=== PATIENT | female | born 1945 | race Caucasian/White ===

== ENCOUNTER 2019-03-04 12:50 | Emergency (ER) | payer MEDICARE, OTHER ==
[~2019-03-04] VITALS: Ht 170.2 cm; Wt 72.3 kg
[2019-03-04 13:13] VITALS: Ht 170.2 cm; Wt 72.3 kg
[2019-03-04] MEDS ORDERED: OS-CAL500 MG PO (13:17)
[2019-03-04] MEDS ORDERED: PROTONIX40 MG PO (13:17)
[2019-03-04] MEDS ORDERED: LIPITOR20 MG PO (13:17)
[2019-03-04] MEDS ORDERED: FISH OIL 1,0001 CA1 PO (13:17)
[2019-03-04] MEDS ORDERED: TIROSINT25 MCG PO (13:17)
[2019-03-04] MEDS ORDERED: MAGNESIUM OXID500 MG PO (13:18)
[2019-03-04] MEDS ORDERED: VITAMIN D31000 UNI2 PO (13:18)
[2019-03-04] MEDS ORDERED: VITAMIN B-121000 MCG PO (13:19)
[2019-03-04] MEDS ORDERED: PRESER VISION (13:19)
[2019-03-04 13:48] LABS: BASOPHILS 0.6 % (0-2); EOSINOPHILS 2.3 % (0-7); HEMATOCRIT 42.1 % (36.0-48.0); HEMOGLOBIN 13.9 g/dL (12-16); IMMATURE GRANULOCYTES 0.2 % (0-5); MCH 31.1 pg (26.0-34.0); MCV 94.2 fL (80.0-100.0); MEAN PLATELET VOLUME 9.9 fL (7.4-10.4); NEUTROPHILS 57.9 % (40-80); PLATELET COUNT 168 10x3/uL (130-400); RBC 4.47 10x6/uL (4.00-5.40); RDW 13.4 % (11.5-14.5); WBC 5.3 10x3/uL (4.8-10.8)
[2019-03-04 13:56] LABS: APTT 27.7 SECONDS (22.8-39.4); INR 0.92 (0.85-1.17); PROTIME 11.9 SECONDS (11.6-15.0)
[2019-03-04 14:01] LABS: ALBUMIN 3.5 g/dL (3.4-5.0); ALKALINE PHOSPHATASE 58 U/L (46-116); ALT (SGPT) 20 U/L (10-68); BILIRUBIN - TOTAL 0.25 mg/dL (0.2-1.3); CALC OSMOLALITY 291 mosm/kg (275-300); CALCIUM 9.8 mg/dL (8.5-10.1); CARBON DIOXIDE 30.1 mmol/L (21.0-32.0); CHLORIDE - SERUM 107 mmol/L (98-107); CREATININE - SERUM 1.2 mg/dL (0.6-1.3); GLUCOSE 101 mg/dL (74-106); POTASSIUM - SERUM 4.2 mmol/L (3.5-5.1); PROTEIN - SERUM 6.9 g/dL (6.4-8.2); SODIUM 145 mmol/L (136-145); UREA NITROGEN 20 mg/dL (7-18); eGFR NON AFRICAN AMERICAN 46 mL/min (90-120)
[2019-03-04 14:12] LABS: CKMB 1.7 U/L (0.0-3.6); CREATINE KINASE 131 UL (21-215); MAGNESIUM - SERUM 2.1 mg/dL (1.8-2.4); TROPONIN-I < 0.017 ng/mL (0.000-0.060)
[2019-03-04 17:07] LABS: CKMB 1.8 U/L (0.0-3.6); CREATINE KINASE 117 UL (21-215); TROPONIN-I < 0.017 ng/mL (0.000-0.060)
[2019-03-04 18:24] VITALS: BP 124/60
== END 2019-03-04 18:25 | disposition home or self-care (01) ==
LOC: D.ER 12:50
PROVIDERS: Family Medicine
DX: R06.09 Other forms of dyspnea (principal); R00.0 Tachycardia, unspecified; I25.10 Atherosclerotic heart disease of native coronary artery without angina pectoris

== ENCOUNTER → 2019-03-17 08:43 | Outpatient (CLI) | payer MEDICARE, OTHER ==
[2019-03-04 13:13] VITALS: BMI 24.9
[~2019-03-17 08:43] MED LIST: FISH OIL 1,0001 CA1 PO; LIPITOR20 MG PO; MAGNESIUM OXID500 MG PO; OS-CAL500 MG PO; PRESER VISION; PROTONIX40 MG PO; TIROSINT25 MCG PO; VITAMIN B-121000 MCG PO; VITAMIN D31000 UNI2 PO
== END | disposition home or self-care (01) ==
LOC: D.HCCARDIO 08:43
PROVIDERS: ATTEND Internal Medicine Cardiovascular Disease
DX: I20.9 Angina pectoris, unspecified (principal)

== ENCOUNTER → 2019-10-27 10:44 | Outpatient (CLI) | payer MEDICARE, OTHER ==
[2019-03-04 13:13] VITALS: BMI 24.9
== END | disposition home or self-care (01) ==
LOC: D.HCCECHO 10:44
PROVIDERS: ATTEND Internal Medicine Cardiovascular Disease
DX: R07.9 Chest pain, unspecified (principal)